=== PATIENT | male | born 1955 | race Caucasian/White ===

== ENCOUNTER → 2017-07-30 | Outpatient (CLI) | payer BC, MEDICARE | LOC: M RAD 08:42 | DX: F17.218 Nicotine dependence, cigarettes, with other nicotine-induced disorders (principal) | CPT/HCPCS: G0297 ==

== ENCOUNTER 2017-11-29 15:04 | Emergency (ER) | payer BC, MEDICARE ==
[2017-11-29 18:25] LABS: BASO % 0.3 % (0.0-1.0); EOS # 0.3 10^3/uL (0.0-0.50); HEMOGLOBIN 15.9 g/dl (13.5-17.5); IMMATURE GRANULOCYTE % 0.7 % (0-3.0); LYMPH # 2.1 10^3/uL (1.5-4.5); LYMPH % 14.3 % (24.0-44.0); MEAN CORPUSCULAR HEMOGLOBIN 31.3 pg (27.0-33.0); MEAN CORPUSCULAR HGB CONC 33.8 g/dl (32.0-36.5); MEAN CORPUSCULAR VOLUME 92.5 fl (80.0-96.0); NEUTROPHILS # 11.2 10^3/uL (1.8-7.7); NEUTROPHILS % 75.7 % (36.0-66.0); PLATELET COUNT, AUTOMATED 192 10^3/uL (150-450); RED BLOOD COUNT 5.08 10^6/uL (4.30-6.10); RED CELL DISTRIBUTION WIDTH 13.7 % (11.5-14.5); WHITE BLOOD COUNT 14.7 10^3/uL (4.0-10.0)
[2017-11-29 18:41] LABS: ESTIMATED AVERAGE GLUCOSE 177 MG/DL (60-110); HEMOGLOBIN A1c 7.8 %
[2017-11-29 18:47] LABS: ERYTHROCYTE SEDIMENTATION RATE 30 mm/hr (0-20)
[2017-11-29] MEDS ORDERED: ISOVUE-370 76% 100ML VIAL (Q9967) As Ordered ×2 (18:52)
[2017-11-29 18:57] LABS: ANION GAP 8 MEQ/L (8-16); BLOOD UREA NITROGEN 18 MG/DL (7-18); C REACTIVE PROTEIN QUANTITATIV 1.06 MG/DL (0.00-0.30); CARBON DIOXIDE LEVEL 24 MEQ/L (21-32); CHLORIDE LEVEL 111 MEQ/L (98-107); CREATININE FOR GFR 0.98 MG/DL (0.70-1.30); GLOMERULAR FILTRATION RATE > 60.0 (>49); GLUCOSE, FASTING 88 MG/DL (70-100); POTASSIUM SERUM 4.5 MEQ/L (3.5-5.1); SODIUM LEVEL 143 MEQ/L (136-145)
[2017-11-29] MEDS: CLINDAMYCIN 600 MG in APPROPRIATE DILUENT 1 EA IV (19:04)
[2017-11-29] MEDS: NS 1,000 ML IV ×2 (19:05)
== END 2017-11-29 20:40 | disposition home or self-care (01) ==
LOC: M ED 15:04
DX: K00-K95 Diseases of the digestive system (principal); L03.211 Cellulitis of face; I25.10 Atherosclerotic heart disease of native coronary artery without angina pectoris; E11.9 Type 2 diabetes mellitus without complications; I10 Essential (primary) hypertension; N28.9 Disorder of kidney and ureter, unspecified; Z72.0 Tobacco use; E66.01 Morbid (severe) obesity due to excess calories; Z79.82 Long term (current) use of aspirin; Z79.84 Long term (current) use of oral hypoglycemic drugs; Z79.899 Other long term (current) drug therapy
CPT/HCPCS: Q9967

== ENCOUNTER 2018-03-27 18:51 | Emergency (ER) | payer BC, MEDICARE ==
[2018-03-27] MEDS: MORPHINE 10 MG/ML 1ML VIAL (J2270) IM (20:19)
[2018-03-27] MEDS: ADACEL/BOOSTRIX VACCINE (DIPHTH/PERTUSS/ACELL/TETANUS)0.5ML SYR (90715) IM (20:19)
[2018-03-27] MEDS: ONDANSETRON 4 MG ORAL DISINTEGRATING TAB (Q0162 PER 1MG) PO (20:45)
[2018-03-27] MEDS: NS 1,000 ML IV (21:00)
[2018-03-27 21:23] LABS: BASO # 0.1 10^3/uL (0.0-0.2); BASO % 0.3 % (0.0-1.0); EOS # 0.3 10^3/uL (0.0-0.50); EOS % 1.7 % (0.0-3.0); HEMATOCRIT 42.6 % (42.0-52.0); HEMOGLOBIN 14.4 g/dl (13.5-17.5); IMMATURE GRANULOCYTE % 0.9 % (0-3.0); LYMPH # 2.7 10^3/uL (1.5-4.5); LYMPH % 18.5 % (24.0-44.0); MEAN CORPUSCULAR HEMOGLOBIN 31.8 pg (27.0-33.0); MEAN CORPUSCULAR HGB CONC 33.8 g/dl (32.0-36.5); MONO # 1.1 10^3/uL (0.0-0.8); MONO % 7.4 % (0.0-5.0); NEUTROPHILS # 10.3 10^3/uL (1.8-7.7); NEUTROPHILS % 71.2 % (36.0-66.0); PLATELET COUNT, AUTOMATED 186 10^3/uL (150-450); RED BLOOD COUNT 4.53 10^6/uL (4.30-6.10); RED CELL DISTRIBUTION WIDTH 13.8 % (11.5-14.5); WHITE BLOOD COUNT 14.5 10^3/uL (4.0-10.0)
[2018-03-27] MEDS: LIDOCAINE 1% MDV 20ML VIAL IM (21:25)
[2018-03-27] MEDS: PIPERACILLIN/TAZOBACTAM SOD 3.375 GM in D5W MINI-BAG PLUS 50 ML IV (21:26)
[2018-03-27 21:41] LABS: ANION GAP 11 MEQ/L (8-16); BLOOD UREA NITROGEN 17 MG/DL (7-18); CALCIUM LEVEL 8.6 MG/DL (8.8-10.2); CARBON DIOXIDE LEVEL 24 MEQ/L (21-32); CHLORIDE LEVEL 110 MEQ/L (98-107); CREATININE FOR GFR 1.14 MG/DL (0.70-1.30); GLOMERULAR FILTRATION RATE > 60.0 (>49); GLUCOSE, FASTING 120 MG/DL (70-100); POTASSIUM SERUM 4.3 MEQ/L (3.5-5.1); SODIUM LEVEL 145 MEQ/L (136-145)
== END 2018-03-27 23:25 | disposition home or self-care (01) ==
LOC: M ED 18:51
DX: S61.012A Laceration without foreign body of left thumb without damage to nail, initial encounter (principal); S66.022A Laceration of long flexor muscle, fascia and tendon of left thumb at wrist and hand level, initial encounter; W31.2XXA Contact with powered woodworking and forming machines, initial encounter; Y92.099 Unspecified place in other non-institutional residence as the place of occurrence of the external cause; Y93.89 Activity, other specified; Y99.9 Unspecified external cause status; E11.9 Type 2 diabetes mellitus without complications; I10 Essential (primary) hypertension; E78.5 Hyperlipidemia, unspecified; N18.9 Chronic kidney disease, unspecified; Z95.5 Presence of coronary angioplasty implant and graft; Z72.0 Tobacco use; Z79.82 Long term (current) use of aspirin; Z79.84 Long term (current) use of oral hypoglycemic drugs; Z79.899 Other long term (current) drug therapy
CPT/HCPCS: 90715

== ENCOUNTER → 2019-02-20 | Outpatient (CLI) | payer BC, MEDICARE ==
[~2019-02-20] MED LIST: ALEV220T26 PO; AMLO5TAB6 PO; ASPI-1 PO; ATEN50TA2; CLEO300C2 PO; GABA600T4; ISOS30TA4; LORA-243; METF10004; MONT10TA2; ROSU20TA5; VALS1TAB67; VITA200015 PO
[2019-02-20 12:33] LABS: HEMATOCRIT 48.8 % (42.0-52.0); HEMOGLOBIN 15.7 g/dl (13.5-17.5); MEAN CORPUSCULAR HEMOGLOBIN 31.3 pg (27.0-33.0); MEAN CORPUSCULAR HGB CONC 32.2 g/dl (32.0-36.5); MEAN CORPUSCULAR VOLUME 97.2 fl (80.0-96.0); PLATELET COUNT, AUTOMATED 167 10^3/uL (150-450); RED BLOOD COUNT 5.02 10^6/uL (4.30-6.10); WHITE BLOOD COUNT 8.7 10^3/uL (4.0-10.0)
[2019-02-20 12:57] LABS: BLOOD UREA NITROGEN 17 MG/DL (7-18); CALCIUM LEVEL 9.3 MG/DL (8.8-10.2); CARBON DIOXIDE LEVEL 24 MEQ/L (21-32); CHLORIDE LEVEL 116 MEQ/L (98-107); CREATININE FOR GFR 1.02 MG/DL (0.70-1.30); GLOMERULAR FILTRATION RATE > 60.0 (>49); GLUCOSE, FASTING 121 MG/DL (70-100); NT-PRO BNP 10 PG/ML (<125); POTASSIUM SERUM 4.5 MEQ/L (3.5-5.1); SODIUM LEVEL 146 MEQ/L (136-145)
--- NOTE | 2019-02-20 14:21 | REP ---
REASON: Dyspnea. COMPARISON: 08/15/2012 FINDINGS: The superior mediastinal structures are midline. The cardiac silhouette is unremarkable in size, shape, and position. The diaphragmatic surfaces of the lungs are regular, and the costophrenic angles are clear. The pulmonary crane are clear. The imaged osseous structures are intact. Chronic changes are again seen involving the imaged spine. IMPRESSION: There is no acute cardiopulmonary disease. There is no change from the prior exam. Electronically Signed by Chase Oquendo DO 02/20/2019 04:46 P
== END ==
LOC: M LAB 11:45
PROVIDERS: ATTEND Physician Assistant
DX: R06.02 Shortness of breath (principal)

== ENCOUNTER → 2019-03-15 | Outpatient (CLI) | payer BC, MEDICARE ==
--- NOTE | 2019-03-15 13:01 | REP ---
Clinical: Lung screening. History smoking. Comparison: 07/30/2017 Technique: Axial low-dose noncontrast images from the thoracic inlet to the upper abdomen using lung screening technique. Findings: The lung crane are well-aerated. No consolidation, significant nodule or mass lesion is appreciated. No pleural effusion/reaction or pneumothorax. Tracheobronchial tree is patent. Mediastinum demonstrates mild atherosclerotic changes of the coronary arteries without cardiomegaly. Impression: Lung-RADS category I. No nodule or suspicious abnormality. Electronically Signed by Shawn Arango MD 03/15/2019 12:53 P
== END ==
LOC: M RAD 12:23
PROVIDERS: ATTEND Internal Medicine Pulmonary Disease
DX: F17.218 Nicotine dependence, cigarettes, with other nicotine-induced disorders (principal)

== ENCOUNTER → 2019-03-15 | Outpatient (CLI) | payer BC, MEDICARE ==
[2019-03-15 14:35] LABS: BASO # 0.1 10^3/uL (0.0-0.2); BASO % 0.4 % (0.0-1.0); EOS # 0.2 10^3/uL (0.0-0.5); EOS % 1.4 % (0.0-3.0); HEMATOCRIT 50.1 % (42.0-52.0); HEMOGLOBIN 16.5 g/dl (13.5-17.5); LYMPH # 1.9 10^3/uL (1.5-5.0); LYMPH % 15.9 % (24.0-44.0); MEAN CORPUSCULAR HEMOGLOBIN 31.5 pg (27.0-33.0); MEAN CORPUSCULAR HGB CONC 32.9 g/dl (32.0-36.5); MEAN CORPUSCULAR VOLUME 95.8 fl (80.0-96.0); MONO # 0.8 10^3/uL (0.0-0.8); MONO % 6.5 % (0.0-5.0); NEUTROPHILS # 8.8 10^3/uL (1.5-8.5); NEUTROPHILS % 74.9 % (36.0-66.0); PLATELET COUNT, AUTOMATED 198 10^3/uL (150-450); RED BLOOD COUNT 5.23 10^6/uL (4.30-6.10); WHITE BLOOD COUNT 11.8 10^3/uL (4.0-10.0)
[2019-03-15 15:06] LABS: BLOOD UREA NITROGEN 20 MG/DL (7-18); CALCIUM LEVEL 9.9 MG/DL (8.8-10.2); CARBON DIOXIDE LEVEL 27 MEQ/L (21-32); CHLORIDE LEVEL 111 MEQ/L (98-107); CREATININE FOR GFR 1.02 MG/DL (0.70-1.30); GLOMERULAR FILTRATION RATE > 60.0 (>49); GLUCOSE, FASTING 121 MG/DL (70-100); POTASSIUM SERUM 4.5 MEQ/L (3.5-5.1); SODIUM LEVEL 145 MEQ/L (136-145)
== END ==
LOC: M LAB 13:43
PROVIDERS: ATTEND Surgery Vascular Surgery
DX: F17.218 Nicotine dependence, cigarettes, with other nicotine-induced disorders (principal); I70.213 Atherosclerosis of native arteries of extremities with intermittent claudication, bilateral legs

== ENCOUNTER → 2019-03-21 | Outpatient (CLI) | payer BC, MEDICARE ==
--- NOTE | 2019-03-21 11:05 | REP ---
BILATERAL LOWER EXTREMITY DUPLEX DOPPLER ARTERIAL ULTRASOUND: Real-time ultrasound evaluation and duplex Doppler interrogation of bilateral lower extremity arterial systems is performed. RYLIE bilaterally is 1.0. Moderate scattered plaquing and narrowing is seen without definite hemodynamically significant stenosis sonographically. There are diffusely triphasic waveforms bilaterally with biphasic waveform in the right profunda, monophasic waveform in the left profunda, and biphasic waveform in the distal left posterior tibial artery. PEAK SYSTOLIC VELOCITY RIGHT LEFT Common femoral artery 97.1 cm/s 85.2 cm/s Profunda 76.9 94.9 Proximal SFA 120 89.4 Mid SFA 75.2 84.7 Distal SFA 57.8 68.3 Popliteal 91.3 83.9 Proximal NAYANA 44.3 32.9 Tibial/peroneal trunk 60.9 65.0 Proximal RADIOLOGY DIRECTOR 46.6 68.9 Distal RADIOLOGY DIRECTOR 53.2 52.7 Distal NAYANA 66.4 66.3 IMPRESSION: Scattered moderate plaquing and narrowing without evidence of hemodynamically significant stenosis bilaterally. Electronically Signed by Kelvin Chaudhary MD 03/22/2019 11:13 A
== END ==
LOC: M RAD 08:41
PROVIDERS: ATTEND Surgery Vascular Surgery
DX: I70.213 Atherosclerosis of native arteries of extremities with intermittent claudication, bilateral legs (principal)

== ENCOUNTER → 2019-04-27 | Outpatient (CLI) | payer BC, MEDICARE ==
--- NOTE | 2019-04-27 10:52 | PFTRPT ---
Height: 69.00 Inches Weight: 313.00 Lbs BSA: 2.50 Diagnosis: R91.8 DATE OF STUDY: 04/27/2019 ORDERED BY: Dr. Ford Spirometry: Pre and post bronchodilator study of excellent technical quality. Forced vital capacity borderline. FEV1 in proportion. Obstructive index is, therefore, normal. Flow Volume Loop: Expiratory limb of the flow volume loop is reasonably normal. No significant bronchodilator response identified. Lung Volumes: Total lung capacity normal. Residual volume is in proportion. Diffusing Capacity: Diffusing capacity, although mildly reduced, is appropriate for alveolar volume. Hemoglobin: Hemoglobin acceptable at 14.8. Airway Mechanics: Airway resistance and conductance are normal. IMPRESSION: Mild reduction in the diffusing capacity. Please correlate clinically. MTDD
== END ==
LOC: M CARPUL 09:45
PROVIDERS: ATTEND Internal Medicine Pulmonary Disease
DX: R91.8 Other nonspecific abnormal finding of lung field (principal)

== ENCOUNTER → 2019-04-27 | Outpatient (CLI) | payer BC, MEDICARE ==
--- NOTE | 2019-04-28 07:34 | REP ---
Clinical: Follow up abnormal findings. Technique: Axial noncontrast images from the thoracic inlet to the upper abdomen with coronal and sagittal re-formations. Comparison: 03/15/2019. Findings: The bilateral lung crane are well-aerated and clear. No consolidation, significant nodule, or mass lesion appreciated. Very minimal posterior basilar dependent changes are identified (right greater than left) the tracheobronchial tree is patent and normal. Previously identified density in the distal right trachea approaching the larissa is no longer evident and likely represented small amounts of inspissated material. No obvious adenopathy. Thoracic aorta, pulmonary vasculature and heart/pericardium are relatively normal / stable (mild atherosclerotic changes to the coronary arteries noted). Limited upper abdomen demonstrates normal bilateral adrenal glands along with hepatic steatosis. Surrounding musculoskeletal structures demonstrate age-related changes without focal abnormality. Impression: 1. No acute mediastinal or pleuroparenchymal process. 2. Previously identified density in the distal right trachea has resolved and likely represented small amount of mucus/inspissated material. 3. Hepatic steatosis. Electronically Signed by Shawn Arango MD 04/28/2019 07:25 A
== END ==
LOC: M RAD 09:41
PROVIDERS: ATTEND Internal Medicine Pulmonary Disease
DX: R91.8 Other nonspecific abnormal finding of lung field (principal); K76.0 Fatty (change of) liver, not elsewhere classified; I25.10 Atherosclerotic heart disease of native coronary artery without angina pectoris

== ENCOUNTER → 2019-05-16 | Outpatient (REF) | payer BC, MEDICARE | LOC: M LAB REF 13:24 | PROVIDERS: ATTEND Internal Medicine Pulmonary Disease | DX: R06.02 Shortness of breath (principal) ==

== ENCOUNTER → 2019-05-18 | Outpatient (CLI) | payer BC, MEDICARE ==
--- NOTE | 2019-05-18 17:27 | REP ---
Two-view chest: 05/18/2019. Indication: Dyspnea. Comparison: 04/27/2019. Findings: There is no air space consolidation, significant pleural effusion or pneumothorax. The cardiac silhouette and degenerative sequelae of the thoracic spine are stable. Azygos lobe is again noted. Impression: Clear lungs. Electronically Signed by Murray Ferrera DO 05/18/2019 05:18 P
--- NOTE | 2019-05-19 08:59 | REP ---
VENTILATION-PERFUSION LUNG SCAN: HISTORY: Shortness of breath. Comparison is made with today's chest x-ray. There is a comparison chest CT study from April 27, 2019 as well. TECHNIQUE: 1.0 mCi technetium 99m DTPA aerosol is utilized for the ventilation study and is followed by a 5.4 mCi dose of technetium 99m MAA for the perfusion study. A sequence of eight planar images are acquired for each portion of the study. SCINTIGRAPHIC FINDINGS: There is some central bronchial and esophageal deposition of inspired ventilatory tracer. Otherwise, distribution of ventilation tracer is homogeneous. The perfusion study shows homogeneous distribution of parenchymal uptake as well. There is no evidence of ventilation perfusion defect. Indeed, no significant perfusion defect is seen. IMPRESSION: Negative ventilation perfusion lung scan. No evidence to suggest pulmonary embolus. Electronically Signed by Arvin Ramirez MD 05/19/2019 10:05 A
== END ==
LOC: M RAD 13:07
PROVIDERS: ATTEND Internal Medicine Pulmonary Disease
DX: R06.02 Shortness of breath (principal)
CPT/HCPCS: 71046; 78582; A9540; A9567

== ENCOUNTER → 2020-01-17 | Outpatient (CLI) | payer BC, MEDICARE ==
[~2020-01-17] MED LIST changes: +AMLO1TAB24 PO; -AMLO5TAB6 PO; -MONT10TA2; +MONT10TA4
--- NOTE | 2020-01-17 23:19 | REP ---
BILATERAL EXAM: REASON: History of peripheral vascular disease. RIGHT: The ankle-brachial index is 0.97. ARTERY PEAK SYSTOLIC VELOCITY PHASICITY RETAIL PROJECT MERCHANDISER 91 cm/s Triphasic Profunda 65 cm/s Biphasic SFA proximal 107 cm/s Triphasic SFA mid 80.0 cm/s Triphasic SFA distal 53 cm/s Triphasic Popliteal 54 cm/s Triphasic NAYANA proximal 20 cm/s Triphasic Tibioperoneal trunk 50 cm/s Triphasic RESEARCH AND DEVELOPMENT RESEARCHER proximal 39 cm/s Triphasic RESEARCH AND DEVELOPMENT RESEARCHER distal 41 cm/s Triphasic NAYANA distal 67 cm/s Triphasic LEFT: The ankle-brachial index is 0.9. ARTERY PEAK SYSTOLIC VELOCITY PHASICITY RETAIL PROJECT MERCHANDISER 71 cm/s Triphasic Profunda 70 cm/s Biphasic SFA proximal 81 cm/s Triphasic SFA mid 86 cm/s Triphasic SFA distal 50 cm/s Triphasic Popliteal 44 cm/s Triphasic NAYANA proximal 40 cm/s Biphasic to triphasic Tibioperoneal trunk 51 cm/s Triphasic RESEARCH AND DEVELOPMENT RESEARCHER proximal 41 cm/s Triphasic RESEARCH AND DEVELOPMENT RESEARCHER distal 33 cm/s Triphasic NAYANA distal 43 cm/s Triphasic No significant stenosis is seen. Electronically Signed by Chase Oquendo DO 01/18/2020 11:21 A
== END ==
LOC: M RAD 11:03
PROVIDERS: ATTEND Physician Assistant
DX: I70.213 Atherosclerosis of native arteries of extremities with intermittent claudication, bilateral legs (principal)

== ENCOUNTER → 2020-03-12 | Outpatient (CLI) | payer BC, MEDICARE ==
--- NOTE | 2020-04-08 10:54 | REP ---
BILATERAL LOWER EXTREMITY DUPLEX DOPPLER VENOUS ULTRASOUND WITH EVALUATION OF VENOUS REFLUX HISTORY: Bilateral leg pain. FINDINGS: Real-time compression and duplex Doppler interrogation of bilateral lower extremity deep venous systems was performed. Bilaterally, common femoral, superficial femoral, and popliteal veins are fully compressible with transducer pressure and demonstrate normal spontaneous and phasic flow without evidence of deep venous thrombosis. Evaluation for venous reflux was performed bilaterally. The patient is unable to stand, and the exam is done with the bed tipped. On the right, there is some reflux in the common femoral vein distal to the saphenofemoral junction. There is reflux in anterior accessory greater saphenous vein. There is no reflux in any portion of the greater saphenous vein which measures 7 mm at the saphenofemoral junction and 3 mm more distally. There is no reflux in the lesser saphenous vein which measures 2 mm. There is no reflux in the superficial femoral or popliteal veins. On the left, there is some reflux throughout the deep vein system. There is an anterior accessory greater saphenous vein present with no reflux. There is no reflux in any portion of the greater saphenous vein which measures 5 mm throughout its course. The lesser saphenous vein demonstrates no reflux with a diameter of 3 mm. MTDD
== END ==
LOC: M RAD 09:10
PROVIDERS: ATTEND Physician Assistant
DX: M79.606 Pain in leg, unspecified (principal); R60.9 Edema, unspecified; I87.2 Venous insufficiency (chronic) (peripheral)

== ENCOUNTER → 2020-11-05 | Outpatient (REF) | payer BC, MEDICARE ==
[~2020-11-05] MED LIST changes: +ISOS1TAB35; -ISOS30TA4; +MONT10TA10; -MONT10TA4
[2020-11-05 18:53] LABS: ALBUMIN 4.1 GM/DL (3.2-5.2); ALT/SGPT 31 U/L (12-78); BILIRUBIN,TOTAL 0.5 MG/DL (0.2-1.0); BLOOD UREA NITROGEN 17 MG/DL (7-18); CALCIUM LEVEL 9.6 MG/DL (8.8-10.2); CARBON DIOXIDE LEVEL 25 MEQ/L (21-32); CHLORIDE LEVEL 110 MEQ/L (98-107); CHOLESTEROL LEVEL 97 MG/DL (<200); CHOLESTEROL RISK RATIO 3.344 (<5); CREATININE FOR GFR 0.91 MG/DL (0.70-1.30); GLOMERULAR FILTRATION RATE > 60.0 (>49); GLUCOSE, FASTING 100 MG/DL (70-100); HDL CHOLESTEROL 29 MG/DL (>40); LDL CHOLESTEROL 25 MG/DL (<100); NON-HDL-C 68 MG/DL; POTASSIUM SERUM 4.6 MEQ/L (3.5-5.1); SODIUM LEVEL 142 MEQ/L (136-145); TOTAL PROTEIN 7.8 GM/DL (6.4-8.2); TRIGLYCERIDES LEVEL 217 MG/DL (<150)
[2020-11-05 20:14] LABS: HEMOGLOBIN A1c 6.5 %
== END ==
LOC: M LAB REF 16:34
PROVIDERS: ATTEND Family Medicine Addiction Medicine
DX: E11.69 Type 2 diabetes mellitus with other specified complication (principal)

== ENCOUNTER → 2021-04-09 | Outpatient (CLI) | payer BC, MEDICARE ==
--- NOTE | 2021-04-09 09:26 | REP ---
INDICATION: AAA SCREENING COMPARISON: None. TECHNIQUE: Real time salguero scale ultrasound examination using curved array transducer. FINDINGS: Evaluation of the abdominal aorta is somewhat limited due to interposed bowel gas. Proximal aorta: Obscured by bowel gas cm Aorta at renal arteries: Obscured by bowel gas cm Mid aorta: 1.9 x 1.9 cm Distal aorta: 1.9 x 1.6 cm Right common iliac artery: 1.2 x 1.2 cm Left common iliac artery: 1.4 x 0.8 cm IMPRESSION: Limited examination due to body habitus and bowel gas. No obvious abdominal aortic aneurysm identified. <Electronically signed by Shawn Arango > 04/09/21 [id number]
== END ==
LOC: M RAD 08:04
PROVIDERS: ATTEND Family Medicine Addiction Medicine
DX: I10 Essential (primary) hypertension (principal)

== ENCOUNTER → 2021-06-26 | Outpatient (CLI) | payer BC, MEDICARE ==
--- NOTE | 2021-06-26 13:01 | REP ---
INDICATION: UNIL INGUINAL HERNIA, W/O OBST OR GANGR, NOT SPCF COMPARISON: None. TECHNIQUE: Grayscale ultrasound examination using linear high-frequency transducer. FINDINGS: Ultrasound examination of the left groin demonstrates no fluid collection or evidence for hernia. No adenopathy or mass lesion identified. IMPRESSION: Normal left groin ultrasound. No evidence for hernia or obvious abnormality. <Electronically signed by Shawn Arango > 06/26/21 [id number]
== END ==
LOC: M RAD 11:57
PROVIDERS: ATTEND Family Medicine Addiction Medicine
DX: K40.90 Unilateral inguinal hernia, without obstruction or gangrene, not specified as recurrent (principal)

== ENCOUNTER → 2021-07-29 | Outpatient (CLI) | payer BC, MEDICARE ==
[~2021-07-29] MED LIST changes: +GASTROGRAFIN SOLUTION 30ML (Q9963) As Ordered ONE; +ISOVUE-370 76% 100ML VIAL As Ordered ONE; -MONT10TA10; +MONT10TA97
== END ==
LOC: M RAD 09:31
PROVIDERS: ATTEND Surgery
DX: R10.814 Left lower quadrant abdominal tenderness (principal); K76.0 Fatty (change of) liver, not elsewhere classified; N20.0 Calculus of kidney; K57.90 Diverticulosis of intestine, part unspecified, without perforation or abscess without bleeding
CPT/HCPCS: 74177; Q9963; Q9967

== ENCOUNTER → 2021-12-05 | Outpatient (CLI) | payer BC, MEDICARE ==
[~2021-12-05] MED LIST changes: -GASTROGRAFIN SOLUTION 30ML (Q9963) As Ordered ONE; -ISOVUE-370 76% 100ML VIAL As Ordered ONE
== END ==
LOC: M RAD 11:15
PROVIDERS: ATTEND Internal Medicine Pulmonary Disease
DX: Z12.2 Encounter for screening for malignant neoplasm of respiratory organs (principal); Z87.891 Personal history of nicotine dependence; R91.8 Other nonspecific abnormal finding of lung field

== ENCOUNTER → 2022-03-31 | Outpatient (CLI) | payer BC, MEDICARE ==
[2022-03-31 11:27] LABS: HEMATOCRIT 50.3 % (42.0-52.0); HEMOGLOBIN 16.1 g/dl (13.5-17.5); MEAN CORPUSCULAR HEMOGLOBIN 30.6 pg (27.0-33.0); MEAN CORPUSCULAR VOLUME 95.6 fl (80.0-96.0); PLATELET COUNT, AUTOMATED 164 10^3/uL (150-450); RED BLOOD COUNT 5.26 10^6/uL (4.30-6.10); WHITE BLOOD COUNT 8.8 10^3/uL (4.0-10.0)
[2022-03-31 12:25] LABS: ALBUMIN 3.6 GM/DL (3.2-5.2); ALT/SGPT 38 U/L (12-78); BILIRUBIN,TOTAL 0.4 MG/DL (0.2-1.0); BLOOD UREA NITROGEN 20 MG/DL (7-18); CALCIUM LEVEL 9.5 MG/DL (8.8-10.2); CARBON DIOXIDE LEVEL 25 MEQ/L (21-32); CHLORIDE LEVEL 108 MEQ/L (98-107); CHOLESTEROL LEVEL 105 MG/DL (<200); CHOLESTEROL RISK RATIO 4.375 (<5); CREATININE FOR GFR 0.94 MG/DL (0.70-1.30); GLOMERULAR FILTRATION RATE > 60.0 (>49); GLUCOSE, FASTING 179 MG/DL (70-100); HDL CHOLESTEROL 24 MG/DL (>40); NON-HDL-C 81 MG/DL; POTASSIUM SERUM 4.8 MEQ/L (3.5-5.1); SODIUM LEVEL 140 MEQ/L (136-145); TOTAL PROTEIN 7.1 GM/DL (6.4-8.2); TRIGLYCERIDES LEVEL 405 MG/DL (<150)
== END ==
LOC: M LAB 10:25
PROVIDERS: ATTEND Physician Assistant
DX: I25.10 Atherosclerotic heart disease of native coronary artery without angina pectoris (principal); E78.00 Pure hypercholesterolemia, unspecified; I11.9 Hypertensive heart disease without heart failure

== ENCOUNTER → 2022-06-24 | Outpatient (REF) | payer MEDICARE ==
[2022-06-24 17:39] LABS: BASO # 0.1 10^3/uL (0.0-0.2); BASO % 0.7 % (0.0-1.0); EOS # 0.2 10^3/uL (0.0-0.5); EOS % 2.1 % (0.0-3.0); HEMATOCRIT 52.6 % (42.0-52.0); HEMOGLOBIN 16.9 g/dl (13.5-17.5); LYMPH # 1.6 10^3/uL (1.5-5.0); LYMPH % 15.2 % (24.0-44.0); MEAN CORPUSCULAR HEMOGLOBIN 29.5 pg (27.0-33.0); MEAN CORPUSCULAR HGB CONC 32.1 g/dl (32.0-36.5); MONO # 0.7 10^3/uL (0.0-0.8); MONO % 6.7 % (2.0-8.0); NEUTROPHILS # 7.8 10^3/uL (1.5-8.5); PLATELET COUNT, AUTOMATED 171 10^3/uL (150-450); RED BLOOD COUNT 5.72 10^6/uL (4.30-6.10); WHITE BLOOD COUNT 10.6 10^3/uL (4.0-10.0)
[2022-06-24 17:55] LABS: ALBUMIN 3.7 G/DL (3.2-5.2); ALKALINE PHOSPHATASE 75 U/L (46-116); ALT/SGPT 46 U/L (7.0-40); AST/SGOT 27 U/L (<34); BILIRUBIN,TOTAL 0.4 MG/DL (0.3-1.2); BLOOD UREA NITROGEN 12 MG/DL (9-23); CALCIUM LEVEL 9.8 MG/DL (8.3-10.6); CARBON DIOXIDE LEVEL 23 MMOL/L (20-31); CHLORIDE LEVEL 108 MMOL/L (98-107); CREATININE FOR GFR 0.76 MG/DL (0.70-1.30); GLOMERULAR FILTRATION RATE > 60.0 (>49); GLUCOSE, FASTING 162 MG/DL (74-106); POTASSIUM SERUM 4.7 MMOL/L (3.5-5.1); SODIUM LEVEL 141 MMOL/L (136-145); TOTAL PROTEIN 7.2 G/DL (5.7-8.2)
[2022-06-24 18:07] LABS: HEMOGLOBIN A1c 9.6 % (4.0-6.0)
== END ==
LOC: M LAB REF 16:23
PROVIDERS: ATTEND Pediatrics
DX: E11.69 Type 2 diabetes mellitus with other specified complication (principal)

== ENCOUNTER → 2022-12-22 | Outpatient (REF) | payer MEDICARE | LOC: M SFHCWOUN 12:33 | PROVIDERS: ATTEND Surgery | DX: L85.8 Other specified epidermal thickening (principal); M79.89 Other specified soft tissue disorders; L90.5 Scar conditions and fibrosis of skin ==

== ENCOUNTER → 2023-01-22 | Outpatient (CLI) | payer MEDICARE ==
[~2023-01-22] MED LIST changes: -ROSU20TA5; +ROSU20TA61
== END ==
LOC: M RAD 08:31
PROVIDERS: ATTEND Internal Medicine Pulmonary Disease
DX: Z12.2 Encounter for screening for malignant neoplasm of respiratory organs (principal); F17.218 Nicotine dependence, cigarettes, with other nicotine-induced disorders; R91.8 Other nonspecific abnormal finding of lung field

== ENCOUNTER → 2023-03-05 | Outpatient (REF) | payer MEDICARE ==
[2023-03-05 17:17] LABS: HEMATOCRIT 48.8 % (42.0-52.0); HEMOGLOBIN 15.9 g/dl (13.5-17.5); MEAN CORPUSCULAR HEMOGLOBIN 29.3 pg (27.0-33.0); MEAN CORPUSCULAR HGB CONC 32.6 g/dl (32.0-36.5); MEAN CORPUSCULAR VOLUME 89.9 fl (80.0-96.0); PLATELET COUNT, AUTOMATED 181 10^3/uL (150-450); RED BLOOD COUNT 5.43 10^6/uL (4.30-6.10); WHITE BLOOD COUNT 10.1 10^3/uL (4.0-10.0)
[2023-03-05 17:20] LABS: THYROID STIMULATING HORMONE 1.346 uIU/ML (0.55-4.78)
[2023-03-05 17:22] LABS: ALBUMIN 3.6 G/DL (3.2-5.2); ALKALINE PHOSPHATASE 69 U/L (46-116); ALT/SGPT 44 U/L (7.0-40); AST/SGOT 31 U/L (<34); BILIRUBIN,TOTAL 0.4 MG/DL (0.3-1.2); BLOOD UREA NITROGEN 18 MG/DL (9-23); CALCIUM LEVEL 9.4 MG/DL (8.3-10.6); CARBON DIOXIDE LEVEL 21 MMOL/L (20-31); CHLORIDE LEVEL 106 MMOL/L (98-107); CHOLESTEROL LEVEL 191 MG/DL (<200); CHOLESTEROL RISK RATIO 8.02 (<5); CREATININE FOR GFR 0.79 MG/DL (0.70-1.30); GLOMERULAR FILTRATION RATE > 60.0 (>49); GLUCOSE, FASTING 193 MG/DL (74-106); HDL CHOLESTEROL 23.8 MG/DL (>40); NON-HDL-C 167.2 MG/DL; POTASSIUM SERUM 4.8 MMOL/L (3.5-5.1); SODIUM LEVEL 140 MMOL/L (136-145); TOTAL PROTEIN 6.9 G/DL (5.7-8.2); TRIGLYCERIDES LEVEL 872 MG/DL (<150)
== END ==
LOC: M LAB REF 16:16
PROVIDERS: ATTEND Pediatrics
DX: E11.69 Type 2 diabetes mellitus with other specified complication (principal)

== ENCOUNTER 2023-07-30 14:17 | Emergency (ER) | payer MEDICARE ==
[~2023-07-30] VITALS: Ht 172.7 cm; Wt 128.4 kg
[2023-07-30 14:18] VITALS: BP 183/83; TEMP 98.2; O2SAT 97
[2023-07-30] MEDS ORDERED: [UNRECOGNIZED DRUG - CODE] PO (14:32)
[2023-07-30] MEDS ORDERED: GNP99TAB3 PO (14:32)
== END 2023-07-30 18:50 | disposition home or self-care (01) ==
LOC: M ED 14:17
DX: N44.2 Benign cyst of testis (principal); L73.2 Hidradenitis suppurativa; E11.9 Type 2 diabetes mellitus without complications; I10 Essential (primary) hypertension; Z79.899 Other long term (current) drug therapy; Z79.84 Long term (current) use of oral hypoglycemic drugs; Z79.1 Long term (current) use of non-steroidal anti-inflammatories (NSAID)

== ENCOUNTER → 2023-09-15 | Outpatient (REF) | payer MEDICARE ==
[~2023-09-15] MED LIST changes: +GNP99TAB3 PO; +[UNRECOGNIZED DRUG - CODE] PO
[2023-09-15 17:47] LABS: HEMOGLOBIN A1c 11.8 % (4.0-6.0)
[2023-09-15 18:03] LABS: BLOOD UREA NITROGEN 20 MG/DL (9-23); CALCIUM LEVEL 9.4 MG/DL (8.3-10.6); CARBON DIOXIDE LEVEL 20 MMOL/L (20-31); CHLORIDE LEVEL 104 MMOL/L (98-107); CHOLESTEROL LEVEL 202 MG/DL (<200); CHOLESTEROL RISK RATIO 8.21 (<5); CREATININE FOR GFR 0.71 MG/DL (0.70-1.30); GLOMERULAR FILTRATION RATE > 60.0 (>49); GLUCOSE, FASTING 293 MG/DL (74-106); HDL CHOLESTEROL 24.6 MG/DL (>40); NON-HDL-C 177.4 MG/DL; POTASSIUM SERUM 4.9 MMOL/L (3.5-5.1); SODIUM LEVEL 136 MMOL/L (136-145); TRIGLYCERIDES LEVEL 1248 MG/DL (<150)
== END ==
LOC: M LAB REF 16:12
PROVIDERS: ATTEND Pediatrics
DX: I10 Essential (primary) hypertension (principal); E11.69 Type 2 diabetes mellitus with other specified complication

== ENCOUNTER → 2023-11-18 | Outpatient (CLI) | payer MEDICARE ==
[~2023-11-18] MED LIST changes: +D3 M1CAP2 PO; +FISH1CAP26 FT; -GABA600T4; +GABA600T4 PO; +IRBE150T27 PO; +JARD1TAB PO; +JARD1TAB3 PO; -METF10004; +METF10004 PO; +SEMA3TAB4 PO; +THERTAB52 PO
[2023-11-18 12:11] LABS: HEMATOCRIT 48.7 % (42.0-52.0); HEMOGLOBIN 16.1 g/dl (13.5-17.5); MEAN CORPUSCULAR HEMOGLOBIN 29.4 pg (27.0-33.0); MEAN CORPUSCULAR HGB CONC 33.1 g/dl (32.0-36.5); PLATELET COUNT, AUTOMATED 213 10^3/uL (150-450); RED BLOOD COUNT 5.47 10^6/uL (4.30-6.10); WHITE BLOOD COUNT 10.3 10^3/uL (4.0-10.0)
[2023-11-18 12:39] LABS: BLOOD UREA NITROGEN 18 MG/DL (9-23); CALCIUM LEVEL 9.4 MG/DL (8.3-10.6); CARBON DIOXIDE LEVEL 25 MMOL/L (20-31); CHLORIDE LEVEL 106 MMOL/L (98-107); CREATININE FOR GFR 0.75 MG/DL (0.70-1.30); GLOMERULAR FILTRATION RATE > 60.0 (>49); GLUCOSE, FASTING 209 MG/DL (74-106); POTASSIUM SERUM 4.4 MMOL/L (3.5-5.1); SODIUM LEVEL 140 MMOL/L (136-145)
== END ==
LOC: M RAD 11:10
PROVIDERS: ATTEND Physician Assistant
DX: Z01.818 Encounter for other preprocedural examination (principal); J98.11 Atelectasis

== ENCOUNTER 2023-11-26 10:15 | Day surgery (SDC) | payer MEDICARE ==
[~2023-11-26] VITALS: Ht 175.3 cm; Wt 124.3 kg
[~2023-11-26 10:15] MED LIST changes: +LIDOCAINE 2% 100MG/5ML SDV (FOR ANES.) As Ordered ONE; +ONDANSETRON 4MG 2ML VIAL As Ordered ONE; +propofoL 200 MG/20 ML VIAL As Ordered ONE
[2023-11-26] MEDS ORDERED: fentaNYL 100 MCG/2 ML INJECTION As Ordered ONE (10:44)
[2023-11-26] MEDS ORDERED: MIDAZOLAM INJ 2MG/2ML VIAL As Ordered ONE (10:44)
[2023-11-26] MEDS ORDERED: LR 1,000 ML IV SCH ×2 (10:45→12:35)
[2023-11-26] MEDS ORDERED: GLUCOSE 4 GM CHEW PO PRN (11:00)
[2023-11-26] MEDS ORDERED: GLUCAGON INJ 1MG VIAL SC PRN (11:00)
[2023-11-26] MEDS ORDERED: DEXTROSE 50% 50ML SYRINGE IV PRN (11:00)
[2023-11-26] MEDS: INSULIN LISPRO (NovoLOG) PER UNIT SC PRN (11:16)
[2023-11-26] MEDS: ceFAZolin SOD 1 GM in D5W MINI-BAG PLUS 50 ML IV ONE (11:37)
[2023-11-26] MEDS: ceFAZolin SOD 2 GM in IV 1 EA IV ONE (11:37)
[2023-11-26] MEDS ORDERED: ROCURONIUM BROMIDE 50MG/5ML VIAL As Ordered ONE (11:38)
[2023-11-26] MEDS ORDERED: SUGAMMADEX SODIUM 500 MG/5 ML VIAL (BRIDION) As Ordered ONE (11:38)
[2023-11-26] MEDS ORDERED: ACETAMINOPHEN 1000MG 100ML IV BAG As Ordered ONE (11:41)
[2023-11-26] MEDS: LIDOCAINE 1% SDV 30ML VIAL As Ordered ONE (12:28)
[2023-11-26] MEDS: BACITRACIN OINTMENT 30GM TUBE As Ordered ONE (12:28)
[2023-11-26] MEDS ORDERED: oxyCODONE 5MG TAB PO PRN (12:35)
[2023-11-26] MEDS ORDERED: ONDANSETRON 4MG 2ML VIAL IV PRN (12:35)
[2023-11-26] MEDS ORDERED: fentaNYL 100 MCG/2 ML INJECTION IV PRN (12:35)
[2023-11-26] MEDS ORDERED: HYDROMORPHONE HCL 0.5 MG/ 0.5 ML SYRINGE IV PRN (12:35)
[2023-11-26] MEDS ORDERED: OXYC1TAB23 PO (12:59)
[2023-11-26] MEDS ORDERED: CEPH500C PO (12:59)
[2023-11-26] MEDS ORDERED: PERCOCET 5MG/325MG TAB PO PRN (13:30)
[2023-11-26 14:16] VITALS: BP 119/60; TEMP 97.5; O2SAT 95
== END 2023-11-26 14:29 | disposition home or self-care (01) ==
LOC: M SDC 10:15
PROVIDERS: ATTEND Urology
DX: N50.3 Cyst of epididymis (principal); E11.9 Type 2 diabetes mellitus without complications; I10 Essential (primary) hypertension; E78.00 Pure hypercholesterolemia, unspecified; G47.30 Sleep apnea, unspecified; F17.210 Nicotine dependence, cigarettes, uncomplicated; Z79.899 Other long term (current) drug therapy
CPT/HCPCS: 54830; 88304; J0131; J0665; J0690; J1815; J2250; J2405; J3010

== ENCOUNTER → 2024-04-14 | Outpatient (CLI) | payer MEDICARE ==
[~2024-04-14] MED LIST changes: +CEPH500C PO; +GABA-1490 PO; -GABA600T4 PO; -LIDOCAINE 2% 100MG/5ML SDV (FOR ANES.) As Ordered ONE; -ONDANSETRON 4MG 2ML VIAL As Ordered ONE; +OXYC1TAB23 PO; -ROSU20TA61; +ROSU20TA86; -propofoL 200 MG/20 ML VIAL As Ordered ONE
== END ==
LOC: M RAD 09:14
PROVIDERS: ATTEND Internal Medicine Pulmonary Disease
DX: Z12.2 Encounter for screening for malignant neoplasm of respiratory organs (principal); F17.200 Nicotine dependence, unspecified, uncomplicated

== ENCOUNTER → 2024-04-27 | Outpatient (REF) | payer MEDICARE | LOC: M SMT 12:52 | PROVIDERS: ATTEND Physician Assistant | DX: L03.90 Cellulitis, unspecified (principal) ==

== ENCOUNTER → 2024-06-27 | Outpatient (REF) | payer MEDICARE ==
[2024-06-27 18:15] LABS: HEMATOCRIT 51.1 % (42.0-52.0); HEMOGLOBIN 16.1 g/dl (13.5-17.5); MEAN CORPUSCULAR HEMOGLOBIN 27.6 pg (27.0-33.0); MEAN CORPUSCULAR HGB CONC 31.5 g/dl (32.0-36.5); MEAN CORPUSCULAR VOLUME 87.5 fl (80.0-96.0); PLATELET COUNT, AUTOMATED 193 10^3/uL (150-450); RED BLOOD COUNT 5.84 10^6/uL (4.30-6.10); WHITE BLOOD COUNT 10.4 10^3/uL (4.0-10.0)
[2024-06-27 18:36] LABS: CREATININE, URINE 40.6 MG/DL; MAU/CREAT RATIO 270.9 MCG/MG (0.0-30.0)
[2024-06-27 18:39] LABS: ALBUMIN 3.6 G/DL (3.2-5.2); ALKALINE PHOSPHATASE 75 U/L (40-129); ALT/SGPT 31 U/L (7.0-40); AST/SGOT 18 U/L (<34); BILIRUBIN,TOTAL 0.3 MG/DL (0.3-1.2); BLOOD UREA NITROGEN 15 MG/DL (9-23); CALCIUM LEVEL 9.9 MG/DL (8.3-10.6); CARBON DIOXIDE LEVEL 23 MMOL/L (20-31); CHLORIDE LEVEL 104 MMOL/L (98-107); CHOLESTEROL LEVEL 181 MG/DL (<200); CHOLESTEROL RISK RATIO 6.85 (<5); CREATININE FOR GFR 0.82 MG/DL (0.70-1.30); GLOMERULAR FILTRATION RATE > 60.0 (>49); GLUCOSE, FASTING 231 MG/DL (74-106); HDL CHOLESTEROL 26.4 MG/DL (>40); NON-HDL-C 154.6 MG/DL; SODIUM LEVEL 140 MMOL/L (136-145); TOTAL PROTEIN 7.3 G/DL (5.7-8.2); TRIGLYCERIDES LEVEL 635 MG/DL (<150)
[2024-06-27 18:54] LABS: HEMOGLOBIN A1c 9.4 % (4.0-6.0)
== END ==
LOC: M LAB REF 16:12
PROVIDERS: ATTEND Pediatrics
DX: E11.69 Type 2 diabetes mellitus with other specified complication (principal)

== ENCOUNTER 2025-03-20 09:32 | Emergency (ER) | payer MEDICARE ==
[~2025-03-20] VITALS: Ht 172.7 cm; Wt 123.6 kg
[2025-03-20 11:28] LABS: BASO # 0.1 10^3/uL (0.0-0.2); BASO % 0.6 % (0.0-1.0); EOS # 0.2 10^3/uL (0.0-0.5); EOS % 2.3 % (0.0-3.0); LYMPH # 1.3 10^3/uL (1.5-5.0); LYMPH % 15.7 % (24.0-44.0); MONO # 0.6 10^3/uL (0.0-0.8); MONO % 6.7 % (2.0-8.0); NEUTROPHILS # 6.1 10^3/uL (1.5-8.5); NEUTROPHILS % 73.6 % (36.0-66.0); PLATELET COUNT, AUTOMATED 195 10^3/uL (150-450)
[2025-03-20 11:36] LABS: ERYTHROCYTE SEDIMENTATION RATE 89 mm/hr (0-20)
[2025-03-20 11:45] LABS: INR 0.99
[2025-03-20 11:53] LABS: ALT/SGPT 28 U/L (7.0-40); AST/SGOT 20 U/L (<34); C REACTIVE PROTEIN QUANTITATIV 1.67 MG/DL (<1.0); CALCIUM LEVEL 9.2 MG/DL (8.3-10.6); CARBON DIOXIDE LEVEL 25 MMOL/L (20-31); CHLORIDE LEVEL 108 MMOL/L (98-107); CREATININE FOR GFR 0.79 MG/DL (0.70-1.30); GLOMERULAR FILTRATION RATE > 90.0 (>49); POTASSIUM SERUM 4.7 MMOL/L (3.5-5.1); SODIUM LEVEL 143 MMOL/L (136-145)
[2025-03-20 13:03] LABS: CK-MB VALUE MASS 2.4 NG/ML (<3.6)
[2025-03-20 13:07] LABS: CPK CREATINE PHOSPHOKINASE 91 U/L (46-171); MB/CK RELATIVE INDEX 2.63 (< OR =4)
[2025-03-20] MEDS ORDERED: ALEV220T22 PO (13:58)
[2025-03-20] MEDS ORDERED: KP F1200 PO (13:58)
[2025-03-20] MEDS ORDERED: HOME MED LIST COMPLETE! XX SCH (14:00)
[2025-03-20] MEDS ORDERED: ISOVUE-370 76% 100 ML VIAL As Ordered ONE (14:15)
[2025-03-20] MEDS: ACETAMINOPHEN 500 MG TAB PO ONE (15:43)
[2025-03-20] MEDS ORDERED: LIDO1ADH93 TD (16:05)
[2025-03-20 16:11] VITALS: BP 104/55; TEMP 96.6; O2SAT 93
[2025-03-20] MEDS: LIDOCAINE 5% PATCH TD ONE (16:22)
== END 2025-03-20 16:27 | disposition home or self-care (01) ==
LOC: M ED 09:32 → EDBD 09:32 → M ED 16:27
DX: S76.801A Unspecified injury of other specified muscles, fascia and tendons at thigh level, right thigh, initial encounter (principal); X58.XXXA Exposure to other specified factors, initial encounter; Y92.9 Unspecified place or not applicable; Y93.9 Activity, unspecified; Y99.9 Unspecified external cause status; E11.9 Type 2 diabetes mellitus without complications; I10 Essential (primary) hypertension; M54.9 Dorsalgia, unspecified; Z79.82 Long term (current) use of aspirin; Z79.84 Long term (current) use of oral hypoglycemic drugs; Z79.899 Other long term (current) drug therapy; Z91.040 Latex allergy status
CPT/HCPCS: 73502; 74177; 76857; 80048; 80076; 82550; 82553; 83605; 84145; 84484; 85025; 85610; 85652; 85730; 86140; 93005; 93041; 93971; 94760; 99285; Q9967

== ENCOUNTER → 2025-05-21 | Outpatient (CLI) | payer MEDICARE ==
[~2025-05-21] MED LIST changes: +ALEV220T22 PO; +KP F1200 PO; +LIDO1ADH93 TD
== END ==
LOC: M RAD 13:58
PROVIDERS: ATTEND Internal Medicine Pulmonary Disease
DX: F17.218 Nicotine dependence, cigarettes, with other nicotine-induced disorders (principal)